=== PATIENT | female | born 1985 | race Hispanic/Latino ===

== ENCOUNTER 2017-05-03 22:00 | Emergency (ER) | payer OTHER ==
[~2017-05-03] VITALS: Ht 160 cm; Wt 94.1 kg
[~2017-05-03 22:00] MED LIST: ATARAX,VISTARIL25 MG PO; ATARAX,VISTARIL50 MG PO; BACTRIM,SEPT1 TABLET; COLACE100 MG PO; CORTIZONE-10 PL57 GM TP; ERGOCALCIF50000 UNIT PO; FLEXERIL10 MG PO; GLUCOPHAGE XR750 MG PO; HYDROCODON-ACE1 EAC7; HYDROCORTISON28.4 GM; LISINOPRIL10 MG PO; MECLIZINE HCL25 MG PO; METFORMIN HCL500 MG PO; MOTRIN600 MG PO; MOTRIN800 MG PO; NAPROSYN500 MG; NOHOMEMEDS; OMEPRAZOLE40 M1 PO; PEPCID20 MG PO; PERCOCET 5/31 TABLET PO; PREDNISONE10 MG PO; PRENATAL1 EACH PO; SERTRALINE HCL50 MG; SPRINTEC1 EACH; TORADOL10 MG PO; TRAMADOL HCL50 MG; ULTRAM50 MG PO; ZOFRAN4 MG PO
[2017-05-03 23:25] LABS: HEMATOCRIT 42.4 % (36.0-46.0); MCH 30.2 PG (29.0-34.0); MCHC 32.5 G/DL (30.0-36.0); MCV 92.8 FL (83-99); MEAN PLAT.VOLUME 10.5 uM^3 (9.5-12.4); PLATELET COUNT 268 K/uL (156-360); RBC DIS.WIDTH-CV 13.2 % (11.8-14.6); RBC DIS.WIDTH-SD 44.1 % (39-53); RED BLOOD COUNT 4.57 M/uL (3.80-5.20); WHITE BLOOD COUNT 6.5 K/uL (4.1-10.2)
[2017-05-03 23:37] LABS: CHLORIDE 106 mEq/L (99-109); POTASSIUM 3.8 mEq/L (3.7-5.4); SODIUM 140 mEq/L (136-147)
[2017-05-03 23:38] LABS: GLUCOSE 112 mg/dL (70-99)
[2017-05-03 23:39] LABS: ANION GAP 11 MEQ/L (2-14)
[2017-05-03 23:42] LABS: GFR ESTIMATE (CALCULATED) > 59 mL/min/; UREA NITROGEN (BUN) 8 mg/dL (9-23)
[2017-05-03 23:46] LABS: TROP-I INTERPRETATION NEGATIVE; TROPONIN-I < 0.01 ng/mL (0.0-0.30)
[2017-05-03 23:51] LABS: TOTAL BILIRUBIN 0.3 mg/dL (0.0-1.0)
[2017-05-03 23:53] LABS: ALKALINE PHOSPHATASE 62 IU/L (3-129)
[2017-05-03 23:55] LABS: DIRECT BILIRUBIN 0.2 mg/dL (0.0-0.3)
[2017-05-03 23:56] LABS: LIPASE 112 U/L (1.0-51.0)
[2017-05-04 01:41] LABS: TROP-I INTERPRETATION NEGATIVE; TROPONIN-I < 0.01 ng/mL (0.0-0.30)
[2017-05-04 02:33] VITALS: BP 115/63
== END 2017-05-04 02:33 | disposition home or self-care (01) ==
LOC: EME 22:00 → RME 22:00
PROVIDERS: Physician Assistant
DX: R07.89 Other chest pain (principal); K21.9 Gastro-esophageal reflux disease without esophagitis; Z98.84 Bariatric surgery status
CPT/HCPCS: 71020; 71275; 80048; 80076; 83690; 84484; 85027; 93005; 99281; 99284; J1885; J7030

== ENCOUNTER 2017-08-14 14:19 | Emergency (ER) | payer OTHER ==
[~2017-08-14] VITALS: Ht 160 cm; Wt 81.9 kg
[2017-08-14 15:09] LABS: HEMATOCRIT 40.4 % (36.0-46.0); MCH 31.4 PG (29.0-34.0); MCHC 32.9 G/DL (30.0-36.0); MCV 95.3 FL (83-99); PLATELET COUNT 274 K/uL (156-360); RBC DIS.WIDTH-CV 13.4 % (11.8-14.6); RBC DIS.WIDTH-SD 46.8 % (39-53); RED BLOOD COUNT 4.24 M/uL (3.80-5.20); WHITE BLOOD COUNT 6.4 K/uL (4.1-10.2)
[2017-08-14 15:18] LABS: CHLORIDE 107 mEq/L (99-109); SODIUM 141 mEq/L (136-147)
[2017-08-14 15:21] LABS: GLUCOSE 97 mg/dL (70-99)
[2017-08-14 15:22] LABS: ANION GAP 12 MEQ/L (2-14)
[2017-08-14 15:23] LABS: TOTAL BILIRUBIN 0.4 mg/dL (0.0-1.0)
[2017-08-14 15:24] LABS: ALKALINE PHOSPHATASE 75 IU/L (3-129); GFR ESTIMATE (CALCULATED) > 59 mL/min/
[2017-08-14 15:25] LABS: UREA NITROGEN (BUN) 11 mg/dL (9-23)
[2017-08-14 15:28] LABS: LIPASE 23 U/L (1.0-51.0)
[2017-08-14 15:33] LABS: QUANTITATIVE HCG < 4.0 MIU/ML
[2017-08-14 15:40] LABS: ADD MIUA? YES; BILIRUBIN NEGATIVE; BLOOD NEGATIVE; COLOR YELLOW ((YELLOW)); GLUCOSE (STRIP) NEGATIVE; KETONES NEGATIVE; LEUKOCYTES NEGATIVE; NITRITE NEGATIVE; PROTEIN (STRIP) NEGATIVE; SPECIFIC GRAVITY 1.024 (1.000-1.030); UROBILINOGEN 0.2 MG/DL (0.2-1.0)
[2017-08-14 15:44] LABS: UCUL ADDED? NO
[2017-08-14 15:53] LABS: BACTERIA RARE /HPF; EPITHELIAL CELLS 2+ /HPF; MUCUS 1+ /LPF; RED BLOOD CELLS 0-5 /HPF (0-5); WHITE BLOOD CELLS 0-5 /HPF (0-5)
[2017-08-14] MEDS ORDERED: ZOFRAN ODT4 MG PO (17:37)
[2017-08-14] MEDS ORDERED: PHENERGAN25 MG PR (17:37)
[2017-08-14 18:06] VITALS: BP 118/77
== END 2017-08-14 18:08 | disposition home or self-care (01) ==
LOC: EME 14:19
DX: B34.9 Viral infection, unspecified (principal); Z98.84 Bariatric surgery status; E11.9 Type 2 diabetes mellitus without complications; F32.9 Major depressive disorder, single episode, unspecified
CPT/HCPCS: 80053; 81003; 83690; 84702; 85027; 99281; 99284; J1885

== ENCOUNTER 2017-12-05 19:09 | Emergency (ER) | payer OTHER ==
[~2017-12-05] VITALS: Ht 160 cm; Wt 75.7 kg
[~2017-12-05 19:09] MED LIST changes: +PHENERGAN25 MG PR; +ZOFRAN ODT4 MG PO
[2017-12-05 20:27] LABS: HEMATOCRIT 40.1 % (36.0-46.0); HEMOGLOBIN 13.3 G/DL (11.9-15.5); MCH 31.9 PG (29.0-34.0); MCHC 33.2 G/DL (30.0-36.0); MCV 96.2 FL (83-99); PLATELET COUNT 284 K/uL (156-360); RBC DIS.WIDTH-CV 13.2 % (11.8-14.6); RBC DIS.WIDTH-SD 47.1 % (39-53); RED BLOOD COUNT 4.17 M/uL (3.80-5.20); WHITE BLOOD COUNT 7.6 K/uL (4.1-10.2)
[2017-12-05 20:38] LABS: ALBUMIN 4.1 g/dL (3.2-4.8)
[2017-12-05 20:39] LABS: CHLORIDE 109 mEq/L (99-109); POTASSIUM 4.1 mEq/L (3.7-5.4); SODIUM 142 mEq/L (136-147)
[2017-12-05 20:41] LABS: GLUCOSE 109 mg/dL (70-99); TOTAL PROTEIN 7.2 g/dL (6.4-8.3)
[2017-12-05 20:43] LABS: TOTAL BILIRUBIN 0.2 mg/dL (0.0-1.0)
[2017-12-05 20:44] LABS: ALKALINE PHOSPHATASE 67 IU/L (3-129)
[2017-12-05 20:45] LABS: CREATININE 0.7 mg/dL (0.6-1.3); GFR ESTIMATE (CALCULATED) > 59 mL/min/
[2017-12-05 20:46] LABS: AST (GOT) 16 IU/L (2-34); UREA NITROGEN (BUN) 7 mg/dL (9-23)
[2017-12-05 20:48] LABS: ALT (GPT) 15 IU/L (3-49); LIPASE 18 U/L (1.0-51.0)
[2017-12-05 20:54] LABS: QUANTITATIVE HCG < 4.0 MIU/ML
[2017-12-05 21:49] LABS: APPEARANCE CLOUDY ((CLEAR)); BILIRUBIN NEGATIVE; BLOOD MODERATE; COLOR YELLOW ((YELLOW)); GLUCOSE (STRIP) NEGATIVE; KETONES NEGATIVE; LEUKOCYTES NEGATIVE; NITRITE NEGATIVE; PROTEIN (STRIP) 30; SPECIFIC GRAVITY 1.023 (1.000-1.030); UROBILINOGEN 0.2 MG/DL (0.2-1.0)
[2017-12-05 22:22] LABS: BACTERIA NONE SEEN /HPF; EPITHELIAL CELLS 3+ /HPF; MUCUS TRACE /LPF; RED BLOOD CELLS 0-5 /HPF (0-5); UCUL ADDED? NO; WHITE BLOOD CELLS 0-5 /HPF (0-5)
[2017-12-05] MEDS ORDERED: ZOFRAN ODT4 MG PO (23:01)
[2017-12-05] MEDS ORDERED: NORCO 5/3251 TABLET PO (23:01)
[2017-12-05 23:17] VITALS: BP 124/88
== END 2017-12-05 23:18 | disposition home or self-care (01) ==
LOC: EME 19:09
DX: R10.2 Pelvic and perineal pain (principal); N93.9 Abnormal uterine and vaginal bleeding, unspecified; E11.9 Type 2 diabetes mellitus without complications; F32.9 Major depressive disorder, single episode, unspecified; K21.9 Gastro-esophageal reflux disease without esophagitis; Z87.891 Personal history of nicotine dependence
CPT/HCPCS: 76856; 80053; 81003; 83690; 84702; 85027; 99281; 99285

== ENCOUNTER 2018-03-29 14:33 | Emergency (ER) | payer OTHER ==
[~2018-03-29] VITALS: Ht 160 cm; Wt 74.0 kg
[~2018-03-29 14:33] MED LIST changes: +NORCO 5/3251 TABLET PO
[2018-03-29 15:13] LABS: HEMATOCRIT 36.8 % (36.0-46.0); HEMOGLOBIN 12.3 G/DL (11.9-15.5); MCH 31.5 PG (29.0-34.0); MCHC 33.4 G/DL (30.0-36.0); MCV 94.1 FL (83-99); PLATELET COUNT 203 K/uL (156-360); RBC DIS.WIDTH-CV 13.3 % (11.8-14.6); RBC DIS.WIDTH-SD 45.8 % (39-53); RED BLOOD COUNT 3.91 M/uL (3.80-5.20); WHITE BLOOD COUNT 4.9 K/uL (4.1-10.2)
[2018-03-29 15:27] LABS: CHLORIDE 107 mEq/L (99-109); POTASSIUM 3.8 mEq/L (3.7-5.4); SODIUM 140 mEq/L (136-147)
[2018-03-29 15:29] LABS: GLUCOSE 84 mg/dL (70-99)
[2018-03-29 15:33] LABS: CREATININE 0.7 mg/dL (0.6-1.3); GFR ESTIMATE (CALCULATED) > 59 mL/min/
[2018-03-29 15:34] LABS: UREA NITROGEN (BUN) 14 mg/dL (9-23)
[2018-03-29 15:41] LABS: QUANTITATIVE HCG < 4.0 MIU/ML
[2018-03-29 16:08] LABS: TROP-I INTERPRETATION NEGATIVE; TROPONIN-I < 0.01 ng/mL (0.0-0.30)
[2018-03-29 18:29] LABS: TROP-I INTERPRETATION NEGATIVE; TROPONIN-I < 0.01 ng/mL (0.0-0.30)
[2018-03-29] MEDS ORDERED: NAPROXEN500 MG PO (18:47)
[2018-03-29] MEDS ORDERED: MEDROL DOSEPAK4 MG PO (18:47)
[2018-03-29] MEDS ORDERED: ULTRAM50 MG PO (19:08)
[2018-03-29 19:14] VITALS: BP 120/68
== END 2018-03-29 19:15 | disposition home or self-care (01) ==
LOC: EME 14:33
PROVIDERS: Physician Assistant Medical
DX: M54.12 Radiculopathy, cervical region (principal); R07.9 Chest pain, unspecified; E11.9 Type 2 diabetes mellitus without complications; I10 Essential (primary) hypertension; K21.9 Gastro-esophageal reflux disease without esophagitis; F32.9 Major depressive disorder, single episode, unspecified; Z87.891 Personal history of nicotine dependence; Z98.84 Bariatric surgery status
CPT/HCPCS: 71046; 80048; 84484; 84702; 85027; 93005; 99281; 99285